=== PATIENT | female | born 1985 | race Two or more races ===

== ENCOUNTER 2022-04-22 19:48 | Emergency (ER) | payer OTHER ==
[~2022-04-22] VITALS: Ht 165.1 cm; Wt 136.1 kg
--- NOTE | 2022-04-22 20:08 | NUR ---
BIBRA 37 C/O increased heart rate after arguing with family today, and drinking alcohol. Placed comfortably in bed. Vitals checked. Patient has hx of ADHD.
--- NOTE | 2022-04-22 20:21 | NUR ---
EKG DONE AT BEDSIDE.
--- NOTE | 2022-04-22 20:25 | NUR ---
URINE SPECIMEN SENT TO LAB
--- NOTE | 2022-04-22 20:44 | NUR ---
XRAY DONE AT BEDSIDE. PER INSPECTOR REPAIRER (ANNE-MARIE) PT SIGNED WAIVER FOR NOT BEING .
[2022-04-22 20:54] LABS: BASOPHILS # (AUTO) 0.2 K/uL (0.0-0.2); BASOPHILS % (AUTO) 3.3 % (0.0-2.0); EOSINOPHILS % (AUTO) 0.6 % (0.0-6.0); HEMATOCRIT 39 % (33-45); HEMOGLOBIN 12.7 g/dL (11.5-14.8); LYMPHOCYTES # (AUTO) 2.3 K/uL (0.8-4.8); LYMPHOCYTES % (AUTO) 48.6 % (20.0-44.0); MEAN CORPUSCULAR HGB CONC 32 g/dl (31.0-36.0); MEAN CORPUSCULAR VOLUME 87 fL (82-100); MONOCYTES # (AUTO) 0.4 K/uL (0.1-1.30); MONOCYTES % (AUTO) 7.6 % (2.0-12.0); NEUTROPHILS # (AUTO) 1.9 K/uL (1.8-8.9); NEUTROPHILS % (AUTO) 39.9 % (43.0-81.0); PLATELET COUNT (AUTO) 332 K/uL (150-450); RED BLOOD CELL COUNT(AUTO) 4.54 MIL/uL (4.0-5.2); WHITE BLOOD COUNT (AUTO) 4.7 K/uL (4.3-11.0)
[2022-04-22 21:05] LABS: CALCIUM, SERUM 7.9 mg/dL (8.5-10.1); CARBON DIOXIDE 25 mmol/L (21-32); CHLORIDE 104 mmol/L (98-107); CREATININE 0.7 mg/dL (0.6-1.3); GLUCOSE 93 mg/dL (74-106); POTASSIUM 3.3 mmol/L (3.5-5.1); SODIUM SERUM 141 mmol/L (136-145); UREA NITROGEN, BLOOD 6 mg/dL (7-18)
[2022-04-22 21:47] LABS: BILIRUBIN,URINE NEGATIVE (NEGATIVE); COLOR,URINE YELLOW (YELLOW); LEUKOCYTE ESTERASE ,URINE TRACE (NEGATIVE); NITRITE, URINE NEGATIVE (NEGATIVE); PH,URINE 5.5 (5.0-8.0); PROTEIN,URINE 100 mg/dl (NEGATIVE); UGLUCOSE NEGATIVE (NEGATIVE); UROBILINOGEN,URINE 0.2 EU/dL (0.2)
[2022-04-22 21:57] LABS: BACTERIA,URINE 1+ /HPF (None Seen); RBC,URINE 51-80 /HPF (0-2); URINE AMORPHOUS URATE Moderate /HPF (None Seen)
--- NOTE | 2022-04-22 22:44 | NUR ---
Patient does not wish to proceed with medical care recommended by Dr. Moreno. Patient given information related to possible complications, up to and including , which could occur as a result of leaving the hospital at this time. Patient verbalizes understanding of risks involved due to leaving against medical advice. Patient has signed AMA form.
[2022-04-22 22:46] VITALS: BP 157/97
--- NOTE | 2022-04-22 22:48 | NUR ---
Patient discharged to home in stable condition. Written and verbal after care instructions given. Patient verbalizes understanding of instruction.
== END 2022-04-22 22:50 | disposition left against medical advice (07) ==
LOC: ER 19:50
DX: R00.2 Palpitations (principal); F10.129 Alcohol abuse with intoxication, unspecified; M25.561 Pain in right knee; Z88.6 Allergy status to analgesic agent; Z60.2 Problems related to living alone; Y90.9 Presence of alcohol in blood, level not specified
CPT/HCPCS: 36415; 71045-TC; 73564-TC; 80048-TC; 81001; 84484-TC; 85025-TC; 87086-TC

== ENCOUNTER 2023-04-06 20:55 | Emergency (ER) | payer OTHER ==
[~2023-04-06] VITALS: Ht 170.2 cm; Wt 136.1 kg
--- NOTE | 2023-04-06 21:15 | NUR ---
URINE COLLECTED, SENT TO LAB
--- NOTE | 2023-04-06 21:16 | NUR ---
BIBRA37. SUICIDAL IDEATION ATTEMPTED TO CUT HERSELF. ON 5150 HOLD BY [employer]. PT AAOX4, AMBULATORY, IN NAD. PLACED IN BED, VITALS CHECKED. SAFETY PRECAUTIONS IN PLACE.
--- NOTE | 2023-04-06 21:17 | NUR ---
PT BELONGINGS TAKEN AND PUT IN A LOCKER. SITTER PRECAUTIONS IN PLACE.
--- NOTE | 2023-04-06 21:25 | NUR ---
PT PROVIDED WITH WARM BLANKET FOR COMFORT.
--- NOTE | 2023-04-06 21:35 | NUR ---
VANSTONE MACHINE OPERATOR AT BEDSIDE
[2023-04-06 21:45] LABS: BILIRUBIN,URINE NEGATIVE (NEGATIVE); COLOR,URINE YELLOW (YELLOW); LEUKOCYTE ESTERASE ,URINE NEGATIVE (NEGATIVE); NITRITE, URINE NEGATIVE (NEGATIVE); PH,URINE 5.5 (5.0-8.0); PROTEIN,URINE 2+ mg/dl (NEGATIVE); UGLUCOSE NEGATIVE (NEGATIVE); UROBILINOGEN,URINE 0.2 EU/dL (0.2)
--- NOTE | 2023-04-06 21:45 | NUR ---
PT PROVIDED WITH FOOD AND WATER FOR COMFORT.
[2023-04-06 21:56] LABS: BASOPHILS # (AUTO) 0.2 K/uL (0.0-0.2); BASOPHILS % (AUTO) 3.9 % (0.0-2.0); EOSINOPHILS % (AUTO) 1.2 % (0.0-6.0); HEMATOCRIT 42 % (33-45); HEMOGLOBIN 13.5 g/dL (11.5-14.8); LYMPHOCYTES # (AUTO) 2.1 K/uL (0.8-4.8); LYMPHOCYTES % (AUTO) 38.9 % (20.0-44.0); MEAN CORPUSCULAR HGB CONC 32 g/dl (31.0-36.0); MEAN CORPUSCULAR VOLUME 85 fL (82-100); MONOCYTES # (AUTO) 0.4 K/uL (0.1-1.30); MONOCYTES % (AUTO) 6.6 % (2.0-12.0); NEUTROPHILS # (AUTO) 2.6 K/uL (1.8-8.9); NEUTROPHILS % (AUTO) 49.4 % (43.0-81.0); PLATELET COUNT (AUTO) 429 K/uL (150-450); RED BLOOD CELL COUNT(AUTO) 4.94 MIL/uL (4.0-5.2); WHITE BLOOD COUNT (AUTO) 5.3 K/uL (4.3-11.0)
--- NOTE | 2023-04-06 21:57 | NUR ---
DON ONEILL (MOTHER) -
[2023-04-06 22:04] LABS: CALCIUM, SERUM 8.4 mg/dL (8.5-10.1); CARBON DIOXIDE 23 mmol/L (21-32); CHLORIDE 104 mmol/L (98-107); CREATININE 0.9 mg/dL (0.6-1.3); GLUCOSE 113 mg/dL (74-106); POTASSIUM 3.5 mmol/L (3.5-5.1); SODIUM SERUM 143 mmol/L (136-145); UREA NITROGEN, BLOOD 7 mg/dL (7-18)
--- NOTE | 2023-04-06 22:10 | NUR ---
MD AT BEDSIDE; PT STATED SHE COULDN'T BREATHE, APPEARED TO BE HYPERVENTILATING. LUNGS CLEAR TO AUSCULTATION BILATERALLY. GIVEN ATIVAN 2MG IM TO REDUCE ANXIETY.
[2023-04-06 22:13] LABS: ALANINE AMINOTRANSFERASE 44 U/L (12-78); ALBUMIN 3.6 g/dL (3.4-5.0); ALCOHOL, BLOOD 373 mg/dL (0-10); ALKALINE PHOSPHATASE 121 U/L (46-116); ASPARTATE AMINOTRANSFERASE 48 U/L (15-37); BILIRUBIN,DIRECT 0.1 mg/dL (0.0-0.2); BILIRUBIN,TOTAL 0.3 mg/dL (0.2-1.0); TOTAL PROTEIN, SERUM 7.7 g/dL (6.4-8.2)
[2023-04-06 22:13] LABS: BACTERIA,URINE Few /HPF (None Seen); FINE GRANULAR CASTS,URINE Rare /LPF (None Seen); HYALINE CASTS, URINE Rare /LPF (None Seen); MUCUS,URINE Few /LPF (None Seen); RBC,URINE NONE SEEN /HPF (0-2); WBC,URINE NONE SEEN /HPF (0-3)
[2023-04-06] MEDS ORDERED: LORAZEPAM INJ 2 MG/ML VIAL ONE (22:16)
[2023-04-06] MEDS ORDERED: LORAZEPAM INJ 2 MG/ML VIAL IM ONE (22:30)
--- NOTE | 2023-04-07 03:55 | NUR ---
PT PROVIDED WITH THREE WARM BLANKETS FOR COMFORT.
--- NOTE | 2023-04-07 04:04 | NUR ---
sherrell notified. ETA for eval is 45-60 mins
--- NOTE | 2023-04-07 04:50 | NUR ---
RHONDA CAME TO SEE PATIENT
--- NOTE | 2023-04-07 06:00 | NUR ---
CALLED MOTHER TO INSTALLER METAL FLOORING PATIENT FROM ER. MOTHER DON MADE AWARE THAT PT WAS SEEN BY LEENA ELLIS AND THE HOLD WAS BROKEN. PATIENT CAN GO HOME
[2023-04-07 06:12] VITALS: BP 144/81; TEMP 98.1
--- NOTE | 2023-04-07 06:12 | NUR ---
Patient discharged to home in stable condition. Written and verbal after care instructions given. Patient verbalizes understanding of instruction.
== END 2023-04-07 06:10 | disposition home or self-care (01) ==
LOC: ER 21:01
DX: R45.851 Suicidal ideations (principal); F10.129 Alcohol abuse with intoxication, unspecified; F32.A Depression, unspecified; Z88.8 Allergy status to other drugs, medicaments and biological substances; Y90.8 Blood alcohol level of 240 mg/100 ml or more
CPT/HCPCS: 99285; 96372; 85025; 80048; 80076; 84703; 81001; 36415; 80143; 80320 ×2; 80307; J2060; G0480